=== PATIENT | female | born 1995 | race American Indian/Alaskan Native ===

== ENCOUNTER 2019-04-26 11:52 | Observation (INO) | payer OTHER ==
[2019-04-26] MEDS ORDERED: ONDANSETRON 4 MG ODT TAB PO ONE (12:58)
[2019-04-26] MEDS ORDERED: SUCRALFATE 1 GM/10 ML ORAL LIQD PO ONE (12:59)
[2019-04-26] MEDS ORDERED: FAMOTIDINE 20 MG TAB PO ONE (12:59)
--- NOTE | 2019-04-26 13:01 | Emergency Department Report ---
Chief Complaint: Nausea/Vomiting/Diarrhea Stated Complaint: ABD PAIN/WEAK Time Seen by Provider: 04/26/19 13:00 - HPI History of Present Illness: 24 y/o female smokes marijuana not sure if p/w n/v, headache weakness belly soft steady gait exam non focal labs ua treat symptoms ok for minor care reassess MSE screening note: Focused history and physical exam performed. Due to findings the following was ordered: ED Disposition for MSE Condition: Stable
[2019-04-26 13:32] LABS: Bacteria,Urine 1+ /HPF (Negative); Bilirubin,Urine NEG (Negative); Blood,Urine NEG (Negative); Color,Urine Yellow (Yellow); Mucus,Urine FEW /HPF; Protein,Urine <15 mg/dL mg/dL (Negative); Urobilinogen,Urine < 2.0 mg/dL (<2.0)
[2019-04-26 14:24] LABS: Hematocrit 39.9 % (30.3-42.9); Hemoglobin 13.4 gm/dl (10.1-14.3); Mean Corpuscular HGB Conc 34 % (30-34); Mean Corpuscular Volume 89 fl (79-97); Platelet Count 268 K/mm3 (140-440); Red Blood Count 4.46 M/mm3 (3.65-5.03); Red Cell Distribution Width 13.9 % (13.2-15.2)
[2019-04-26 14:43] LABS: Alanine Aminotransferase 10 units/L (7-56); Albumin 4.2 g/dL (3.9-5); BUN/Creatinine Ratio 7; Blood Urea Nitrogen 4 mg/dL (7-17); Calcium 9.8 mg/dL (8.4-10.2); Hemolysis Index 8
[2019-04-26] MEDS ORDERED: ONDANSETRON 4 MG ODT TAB ONE ×2 (17:14→17:23)
[2019-04-26] MEDS ORDERED: FAMOTIDINE 20 MG TAB ONE (17:15)
[2019-04-26] MEDS ORDERED: SUCRALFATE 1 GM/10 ML ORAL LIQD ONE (17:18)
[2019-04-26] MEDS ORDERED: METOCLOPRAMIDE 10 MG/2 ML INJ IV ONE (18:41)
[2019-04-26] MEDS ORDERED: diphenhydrAMINE 50 MG/ML VIAL IV ONE (18:41)
[2019-04-26] MEDS ORDERED: SODIUM CHLORIDE 0.9% 1000 ML 1,000 ML IV ONE (18:49)
[2019-04-26] MEDS ORDERED: ACETAMINOPHEN 500 MG TAB PO ONE (18:49)
--- NOTE | 2019-04-26 19:03 | Emergency Department Report ---
ED N/V/D HPI - General Chief complaint: Nausea/Vomiting/Diarrhea Stated complaint: ABD PAIN/WEAK Time Seen by Provider: 04/26/19 13:00 Source: patient Mode of arrival: Ambulatory Limitations: No Limitations - History of Present Illness Initial comments: Patient is a A1 24-year-old [place] female who presents to the ED with a complaint of acute onset persistent nausea, vomiting, severe pelvic pain for the last 2 weeks. Patient states that the nausea and vomiting as well as the pain had been persistent and worsened in the last 2 days and has been unable to keep anything down. Patient denies fever, chills, dizziness, syncope, vaginal bleeding, vaginal discharge, headache, low back pain, dysuria, urinary frequency and urgency, diarrhea, chest pain or shortness of breath. MD complaint: nausea, vomiting, abdominal pain -: Gradual, week(s) (2) Description of Vomiting: food contents, watery Associated Abdominal Pain: Yes (diffuse lower abdominal pain) Radiation: none Severity: moderate Pain Scale: 5 Quality: cramping, aching, sharp Consistency: constant Improves with: none Worsens with: vomiting Context: other () Associated Symptoms: denies other symptoms, loss of appetite, malaise, nausea/vomiting. denies: myalgias, chest pain, cough, diaphoresis, fever/chills, headaches, rash, dysuria, shortness of breath, weakness - Related Data Allergies Allergy/AdvReac Type Severity Reaction Status Date / Time No Known Allergies Allergy Unverified 04/26/19 12:08 ED Review of Systems ROS: Stated complaint: ABD PAIN/WEAK Other details as noted in HPI Constitutional: denies: chills, fever Eyes: denies: eye pain, eye discharge, vision change ENT: denies: ear pain, throat pain Respiratory: denies: cough, shortness of breath, wheezing Cardiovascular: denies: chest pain, palpitations Endocrine: no symptoms reported Gastrointestinal: abdominal pain (suprapubic), nausea, vomiting. denies: diarrhea Genitourinary: denies: urgency, dysuria, discharge Musculoskeletal: denies: back pain, joint swelling, arthralgia Skin: denies: rash, lesions Neurological: denies: headache, weakness, paresthesias Psychiatric: denies: anxiety, depression Hematological/Lymphatic: denies: easy bleeding, easy bruising ED Past Medical Hx - Past Medical History Previous Medical History?: No - Surgical History Past Surgical History?: No - Social History Smoking Status: Former Smoker Substance Use Type: Alcohol, Marijuana ED Physical Exam - General Limitations: No Limitations General appearance: alert, in no apparent distress - Head Head exam: Present: atraumatic, normocephalic, normal inspection - Eye Eye exam: Present: normal appearance, PERRL, EOMI Pupils: Present: normal accommodation - ENT ENT exam: Present: normal exam, normal orophraynx, mucous membranes moist, TM's normal bilaterally, normal external ear exam - Neck Neck exam: Present: normal inspection, full ROM. Absent: tenderness, meningismus, lymphadenopathy, thyromegaly - Respiratory Respiratory exam: Present: normal lung sounds bilaterally. Absent: respiratory distress, wheezes, rales, rhonchi, chest wall tenderness, accessory muscle use, decreased breath sounds, prolonged expiratory - Cardiovascular Cardiovascular Exam: Present: regular rate, normal rhythm, normal heart sounds. Absent: systolic murmur, diastolic murmur, rubs, gallop - GI/Abdominal GI/Abdominal exam: Present: soft, tenderness (suprapubic), normal bowel sounds. Absent: guarding, rebound, hyperactive bowel sounds, hypoactive bowel sounds, organomegaly - Extremities Exam Extremities exam: Present: normal inspection, full ROM, normal capillary refill - Back Exam Back exam: Present: normal inspection, full ROM. Absent: tenderness, CVA tenderness (R), CVA tenderness (L), muscle spasm, paraspinal tenderness - Neurological Exam Neurological exam: Present: alert, oriented X3, CN II-XII intact, normal gait, reflexes normal - Psychiatric Psychiatric exam: Present: normal affect, normal mood - Skin Skin exam: Present: warm, dry, intact, normal color. Absent: rash ED Course Vital Signs 04/26/19 04/26/19 12:58 18:58 Temperature 98.7 F Pulse Rate 82 Respiratory 18 14 Rate Blood Pressure 118/82 O2 Sat by Pulse 98 Oximetry ED Medical Decision Making - Lab Data Result diagrams: 04/26/19 13:52 04/26/19 13:52 - Radiology Data Radiology results: report reviewed, image reviewed Findings [facility] [address] [place] [address] Ultrasound Report Signed Patient: PHILIPPALISSA GIANGJOHNNY Alarcon#: [id number] : 1995 Acct:[id number] Age/Sex: 24 / F ADM Date: 04/26/19 Loc: ED Attending Dr: Ordering Physician: AURE MARTINO Date of Service: 04/26/19 Procedure(s): US OB transvaginal Accession Number(s): [id number] cc: AURE MARTINO OB Ultrasound HISTORY: pelvic pain. TECHNIQUE: Grayscale and color imaging performed. COMPARISON: None FINDINGS: Transabdominal and endovaginal imaging was performed. Uterus measures 11.5 x 5.3 x 5.7 cm with endometrial complex measuring 4.5 cm. There are twin gestations: Twin A: [place]-rump length of 2 cm corresponding with an EGA of 8 weeks and 4 days. No heart rate detected. There is a yolk sac with no free fluid. Twin B: [place]-rump length of 1.9 cm corresponding with an EGA of 8 weeks and 3 days. No heart rate was detected. There is a yolk sac with no free fluid. The ovaries are unremarkable with 1.7 cm likely functional cyst in the right ovary. IMPRESSION: Twin gestations with no cardiac activity identified in either fetus. Signer Name: Laron Preciado MD Signed: 04/26/2019 10:49 PM Workstation Name: [id number] Transcribed By: NISREEN Dictated By: Laron Preciado MD Electronically Authenticated By: Laron Preciado MD Signed Date/Time: 04/26/192248 DD/ 44 - Medical Decision Making This is a A1 24-year-old [place] female is approximately 8 weeks gestation presented to the ED with complaint of persistent severe low abdominal pain with nausea and vomiting. In the ED, patient is alert and oriented 3 and is not in distress with normal vital signs. Lab test results were reviewed and all nonactionable except for hCG Quant of 83,000. Patient was treated for pain in the ED and also received normal saline 1 L IV bolus as well as antiemetics. Transvaginal ultrasound shows twin gestations with no cardiac activity identified in either fetus. The patient's case was discussed with the ED attending physician Dr. Mak who advised of the [employer] physician information tech Dr. Patel be consulted. I therefore paged and discussed the patient's case with Dr. Magi Patel the [employer] physician information tech who admitted the patient to the hospital for observation and for possible D&C the next day. - Differential Diagnosis Ovarian cyst; ectopic ; UTI; ; Fibroids Critical care attestation.: If time is entered above; I have spent that time in minutes in the direct care of this critically ill patient, excluding procedure time. ED Disposition Clinical Impression: Nausea and vomiting in , Missed with demise before 20 completed weeks of gestation Abdominal pain in Qualifiers: Trimester: first trimester Qualified Code(s): O26.891 - Other specified related conditions, first trimester Disposition: DC-09 OP ADMIT IP TO THIS HOSP Is pt being admited?: Yes Does the pt Need Aspirin: No Condition: Stable Time of Disposition: 23:37 Print Language: TAIWANESE
--- NOTE | 2019-04-26 22:54 | Ultrasound Report ---
OB Ultrasound HISTORY: pelvic pain. TECHNIQUE: Grayscale and color imaging performed. COMPARISON: None FINDINGS: Transabdominal and endovaginal imaging was performed. Uterus measures 11.5 x 5.3 x 5.7 cm with endometrial complex measuring 4.5 cm. There are twin gestations: Twin A: [place]-rump length of 2 cm corresponding with an EGA of 8 weeks and 4 days. No heart rate dete cted. There is a yolk sac with no free fluid. Twin B: [place]-rump length of 1.9 cm corresponding with an EGA of 8 weeks and 3 days. No heart rate wa s detected. There is a yolk sac with no free fluid. The ovaries are unremarkable with 1.7 cm likely functional cyst in the right ovary. IMPRESSION: Twin gestations with no cardiac activity identified in either fetus. Signer Name: Laron Preciado MD Signed: 04/26/2019 10:49 PM Workstation Name: [id number]
--- NOTE | 2019-04-26 22:54 | Ultrasound Report ---
OB Ultrasound HISTORY: pelvic pain. TECHNIQUE: Grayscale and color imaging performed. COMPARISON: None FINDINGS: Transabdominal and endovaginal imaging was performed. Uterus measures 11.5 x 5.3 x 5.7 cm with endometrial complex measuring 4.5 cm. There are twin gestations: Twin A: [place]-rump length of 2 cm corresponding with an EGA of 8 weeks and 4 days. No heart rate dete cted. There is a yolk sac with no free fluid. Twin B: [place]-rump length of 1.9 cm corresponding with an EGA of 8 weeks and 3 days. No heart rate wa s detected. There is a yolk sac with no free fluid. The ovaries are unremarkable with 1.7 cm likely functional cyst in the right ovary. IMPRESSION: Twin gestations with no cardiac activity identified in either fetus. Signer Name: Laron Preciado MD Signed: 04/26/2019 10:49 PM Workstation Name: [id number]
[2019-04-26] MEDS ORDERED: LACTATED RINGERS 1,000 ML IV SCH (23:45)
[2019-04-26] MEDS ORDERED: ONDANSETRON 4 MG/2 ML INJ IV PRN (23:46)
[2019-04-27] MEDS ORDERED: DOXYCYCLINE HYCLATE 100 MG in SODIUM CHLORIDE 0.9% 250ML 250 ML IV ONE (07:00)
[2019-04-27] MEDS ORDERED: miSOPROStol 200 MCG TAB PR ONE (07:00)
[2019-04-27] MEDS ORDERED: METHYLERGONOVINE MALEATE 0.2 MG/ML VIAL IM ONE (07:00)
[2019-04-27] MEDS ORDERED: D5W/LACTATED RINGERS 1,000 ML IV SCH (08:00)
--- NOTE | 2019-04-27 08:02 | History and Physical Report ---
History of Present Illness Date of examination: 04/27/19 Date of admission: 04/26/19 23:39 Chief complaint: nausea and vomiting, pelvic pain History of present illness: Pt is a 24 year old LMP January 2019 who presents with persistent nausea and vomiting as well as constant pelvic pain over the past two-three days. The patient reports two menses in January (01/20- 01/22) and (02/15-02/17) that were both light. She then reports spotting for 30 minutes twice in February. She has a h/o irregular menses so she did not think this menstrual pattern was odd. She reports taking a home test on 04/24/19 that was positive. Since then her pain became constant, and her nausea and vomiting worsened to the point it was difficult to tolerate her diet. Once she was evaluated in the ED, she had a positive test and an ultrasound that showed a twin IUP at 8 wks and neither fetus had a heart beat. The patient is requesting an additional ultrasound to confirm non-viability prior to moving forward with her treatment. 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: chlamydia (remote history, treated ) - Obstetrical History Expected Date of Delivery: 11/22/19 Actual Gestation: 10 Week(s) 1 Day(s) : 2 Para: 0 Hx # Term Pregnancies: 0 Number of Pregnancies: 0 Spontaneous Abortions: 1 Induced : 0 Number of Living Children: 0 Medications and Allergies Allergies Allergy/AdvReac Type Severity Reaction Status Date / Time No Known Allergies Allergy Unverified 04/26/19 12:08 Home Medications Medication Instructions Recorded Confirmed Last Taken Type No Known Home Medications [No 04/26/19 04/26/19 Unknown History Reported Home Medications] Active Meds: Active Medications Lactated Ringer's (Lactated Ringers) 1,000 mls @ 100 mls/hr IV DIRECT JUNG Last Admin: 04/27/19 06:34 Dose: 100 mls/hr Documented by: Doxycycline Hyclate 100 mg/ (Sodium Chloride) 250 mls @ 250 mls/hr IV ONCE ONE; Protocol Stop: 04/27/19 07:59 Dextrose/Lactated Ringer's (D5lr) 1,000 mls @ 125 mls/hr IV DIRECT JUNG Ondansetron HCl (Zofran) 4 mg IV Q8H PRN PRN Reason: Nausea And Vomiting Review of Systems All systems: negative - Vital Signs Vital signs: Vital Signs Temp Pulse Resp BP Pulse Ox 98.7 F 82 18 118/82 98 04/26/19 12:58 04/26/19 12:58 04/26/19 12:58 04/26/19 12:58 04/26/19 12:58 Temp Pulse Resp BP Pulse Ox 98.3 F 80 18 135/84 100 04/27/19 00:25 04/27/19 01:12 04/27/19 01:12 04/27/19 00:25 04/27/19 00:25 - Physical Exam Breasts: Positive: deferred Cardiovascular: Regular rate Lungs: Positive: Clear to auscultation Abdomen: Positive: soft (obese ), tenderness Extremities: Positive: normal Results Result Diagrams: 04/26/19 13:52 04/26/19 13:52 Abnormal lab results 04/26/19 04/26/19 04/26/19 Range/Units 13:52 13:52 Unknown Sodium 136 L (137-145) mmol/L BUN 4 L (7-17) mg/dL Creatinine 0.6 L (0.7-1.2) mg/dL HCG, Quant 54227 H (0-4) mIU/mL Urine pH 8.0 H (5.0-7.0) All other labs normal. Assessment and Plan A: Missed of twin gestation at 8 wks Pelvic Pain Nausea and vomiting P: Repeat ultrasound to confirm no heart tones per pt request Proceed with suction dilation and curettage and other indicated procedures
[2019-04-27 08:39] VITALS: BP 131/91
--- NOTE | 2019-04-27 09:36 | Ultrasound Report ---
OB ULTRASOUND LIMITED HISTORY: Twin intrauterine at 8 weeks, evaluate viability TECHNIQUE: Transabdominal ultrasound with color Doppler imaging COMPARISON: 04/26/2019 FINDINGS: A twin gestation is identified. No heart rate can be identified in either fetus. Amniotic fluid volume appears normal. The placenta has not yet developed. No pelvic fluid collection is appreciated . IMPRESSION: demise. A twin gestation is again identified. No heart rate could be detected in ei ther fetus. Signer Name: Ge Bernardo Jr, MD Signed: 04/27/2019 9:32 AM Workstation Name: [id number]
--- NOTE | 2019-04-27 09:58 | Event Note ---
Date: 04/27/19 Pt has changed her mind and does not want surgery. She desires period of observation rather than intervention at this time. She will follow up in the office.
--- NOTE | 2019-04-27 10:04 | Short Stay Summary ---
Short Stay Documentation Date of service: 04/27/19 - History H&P: dictated - Allergies and Medications Current Medications: Allergies No Known Allergies Allergy (Unverified 04/26/19 12:08) Home Medications Medication Instructions Recorded Confirmed Last Taken Type No Known Home Medications [No 04/26/19 04/26/19 Unknown History Reported Home Medications] Active Medications Dextrose/Lactated Ringer's (D5lr) 1,000 mls @ 125 mls/hr IV DIRECT JUNG Ondansetron HCl (Zofran) 4 mg IV Q8H PRN PRN Reason: Nausea And Vomiting - Physical exam Breasts: deferred - Hospital course Hospital course: pt was admitted for nausea, vomiting and pelvic pain. She was diagnosed with missed of twin gestation at 8 wks. She initially consented to a suction dilation and curettage, but now refuses intervention and desires period of observation. She has been given precautions and will contact the office for a gfollow up appt and ultrasound. - Disposition Condition at discharge: Stable Disposition: DC-01 TO HOME OR SELFCARE - Discharge Diagnoses (1) Abdominal pain in Status: Acute Qualifiers: Trimester: first trimester Qualified Code(s): O26.891 - Other specified related conditions, first trimester; R10.9 - Unspecified abdominal pain (2) Missed with demise before 20 completed weeks of gestation Status: Acute (3) Nausea and vomiting in Status: Acute Short Stay Discharge Plan Activity: other (Nothing in vagina ) Weight Bearing Status: Full Weight Bearing Diet: regular Follow up with: PRIMARY MD KARINE [Primary Care Provider] - 7 Days NERY ALMANZA MD [Staff Physician] - 14 Days Prescriptions: Ondansetron (Nf) [Zofran TAB] 8 mg PO Q12H PRN #20 tablet PRN Reason: Nausea
== END 2019-04-27 11:10 | disposition home or self-care (01) ==
LOC: ED 11:52 → LD 23:39 → OB 04-27 00:02
PROVIDERS: ADMIT Obstetrics & Gynecology; ATTEND Obstetrics & Gynecology
DX: O02.1 Missed abortion (principal); O21.9 Vomiting of pregnancy, unspecified; Z3A.20 20 weeks gestation of pregnancy; Z87.891 Personal history of nicotine dependence
CPT/HCPCS: 36415; 76801; 76802; 76815; 76817; 80053; 81001; 82550; 83690; 83735; 84702; 85027; 86850; 86900; 86901; 96361; 96374; 96375; 99284; G0378; J1200; J2765; J7030; J7050; J7120; Q0162